=== PATIENT | male | born 1980 | race Caucasian/White ===

== ENCOUNTER 2024-10-16 09:01 | Inpatient (IN) | payer OTHER ==
[~2024-10-16] VITALS: Ht 175.3 cm; Wt 66.5 kg
[2024-10-16 10:01] LABS: BASOPHILS % (AUTO) 0.1 % (0.0-2.0); EOSINOPHILS % (AUTO) 0 % (1.0-6.0); HEMATOCRIT 37.5 % (41-53); HEMOGLOBIN 12.8 g/dL (13.5-17.5); LYMPHOCYTES # (AUTO) 0.9 K/uL (1.0-4.8); LYMPHOCYTES % (AUTO) 16.1 % (22.0-44.0); MEAN CORPUSCULAR HEMOGLOBIN 30.8 pg (26.0-34.0); MEAN CORPUSCULAR HGB CONC 34.1 G/dL (31.0-37.0); MEAN CORPUSCULAR VOLUME 91 fL (80-100); MONOCYTES # (AUTO) 0.3 K/uL (0.1-1.0); MONOCYTES % (AUTO) 5.6 % (2.0-9.0); NEUTROPHILS # (AUTO) 4.4 K/uL (1.8-7.7); NEUTROPHILS % (AUTO) 78.2 % (40.0-70.0); PLATELET COUNT (AUTO) 126 K/uL (150-450); RED BLOOD CELL COUNT(AUTO) 4.15 MIL/uL (4.50-5.90); RED CELL DISTRIBUTION WIDTH 13.1 % (11.5-14.5); WHITE BLOOD COUNT (AUTO) 5.7 K/uL (4.5-11.0)
[2024-10-16 10:04] LABS: ANION GAP 8 mmol/L (8-16); CALCIUM, TOTAL 8.9 mg/dL (8.8-10.5); CARBON DIOXIDE 29 mmol/L (22-29); CHLORIDE 101 mmol/L (98-107); CREATININE 0.84 mg/dL (0.60-1.30); GLOMERULAR FILTR. RATE CALC > 60 mL/min (>60); GLUCOSE,RANDOM 122 mg/dL (70-110); LIPASE 20 U/L (16-77); POTASSIUM 4.6 mmol/L (3.5-5.1); SODIUM SERUM 138 mmol/L (136-145); UREA NITROGEN, BLOOD 14 mg/dL (7-18)
[2024-10-16 10:10] LABS: ALBUMIN 3.7 g/dL (3.4-5.0); BILIRUBIN,DIRECT 0.1 mg/dL (0.00-0.20); BILIRUBIN,TOTAL 0.6 mg/dL (0.1-1.0); TOTAL PROTEIN, SERUM 7.4 g/dL (6.4-8.2)
[2024-10-16 10:13] LABS: ALCOHOL, BLOOD (SERUM) < 3 mg/dL (0-10)
[2024-10-16] MEDS: ACETAMINOPHEN 1000 MG/ISO-OSM 100 ML IV ONE (10:34)
[2024-10-16] MEDS: ONDANSETRON HCL 4 MG/2 ML VIAL IVP ONE (10:34)
[2024-10-16] MEDS: METOCLOPRAMIDE HCL 5 MG/ML 2 ML VIAL IVP ONE (12:15)
[2024-10-16] MEDS: PB/HYOSCY/ATR/SCOP/LIDO/MAALOX 55 ML BOTTLE PO ONE (12:15)
[2024-10-16 12:29] LABS: COVID AG,FIA SOURCE NASAL SWAB
[2024-10-16 12:35] LABS: APPEARANCE,URINE HAZY (CLEAR); BILIRUBIN,URINE NEGATIVE (NEGATIVE); COLOR,URINE YELLOW (YELLOW); GLUCOSE, URINE (UA) NEGATIVE (NEGATIVE); KETONES,URINE NEGATIVE (NEGATIVE); LEUKOCYTE ESTERASE ,URINE NEGATIVE (NEGATIVE); NITRATE,URINE NEGATIVE (NEGATIVE); OCCULT BLOOD,URINE NEGATIVE (NEGATIVE); PH,URINE 7.5 (5.0-8.0); PH,URINE DRUG SCREEN 7.5 (5.0-8.0); PROTEIN,URINE NEGATIVE (NEGATIVE); SPECIFIC GRAVITIY, URINE 1.022 (1.003-1.030); UROBILINOGEN,URINE <=1.0 mg/dL (<=1.0)
[2024-10-16 12:42] LABS: ALCOHOL, URINE DRUG SCREEN NEGATIVE (NEGATIVE); AMPHET/METH SCREEN,URINE NEGATIVE (NEGATIVE); BARBITURATE SCREEN, URINE NEGATIVE (NEGATIVE); BENZODIAZEPINES SCREEN,URINE NEGATIVE (NEGATIVE); CANNABINOID SCREEN,URINE NEGATIVE (NEGATIVE); COCAINE SCREEN,URINE NEGATIVE (NEGATIVE); METHADONE SCREEN, URINE NEGATIVE (NEGATIVE); OPIATE SCREEN,URINE NEGATIVE (NEGATIVE); PHENCYCLIDINE SCREEN,URINE NEGATIVE (NEGATIVE)
[2024-10-16 12:48] LABS: SARS-COV2 (COVID) ANTIGEN,FIA Negative (Negative)
[2024-10-16 12:49] LABS: INFLUENZA TYPE A NEGATIVE FOR TYPE A (NEGATIVE); INFLUENZA TYPE B NEGATIVE FOR TYPE B (NEGATIVE)
[2024-10-16] MEDS ORDERED: ZOLPIDEM TARTRATE 5 MG TABLET PO PRN (17:15)
[2024-10-16] MEDS ORDERED: HYDROCODONE/ACETAMINOPHEN 5-325 MG TABLET PO PRN (17:15)
[2024-10-16] MEDS ORDERED: ALBUTEROL SULFATE 2.5 MG/0.5 ML NEB SOLUTION NEB PRN (17:15)
[2024-10-16] MEDS ORDERED: IPRATROPIUM BROMIDE 0.5 MG/2.5 ML NEB SOLUTION NEB PRN (17:15)
[2024-10-16] MEDS ORDERED: LABETALOL HCL 5 MG/ML 20 ML VIAL IVP PRN (17:15)
[2024-10-16 17:16] VITALS: BP 144/85; PULSE 54; RESP 18; TEMP 99.5; O2SAT 100
[2024-10-16] MEDS ORDERED: SODIUM CHLORIDE 0.9% 100 ML ONE (17:27)
[2024-10-16] MEDS ORDERED: IOHEXOL 350 MG/ML 100 ML VIAL ONE (17:27)
[2024-10-16] MEDS: DEXTROSE 5%-0.45% SODIUM CHL 1,000 ML IV SCH (18:33)
[2024-10-16 18:40] VITALS: BP 112/64; PULSE 56
[2024-10-16] MEDS: MORPHINE SULFATE 2 MG/ML SYRINGE IVP PRN (18:44)
[2024-10-16 20:05] VITALS: BP 148/87; PULSE 56; RESP 18; TEMP 99; O2SAT 100
[2024-10-16] MEDS: ONDANSETRON HCL 4 MG/2 ML VIAL IVP PRN (20:18)
[2024-10-16] MEDS: DOCUSATE SODIUM 100 MG CAPSULE PO SCH (21:00)
[2024-10-16] MEDS: HEPARIN SODIUM,PORCINE 5,000 UNITS/ML VIAL SQ SCH (23:28)
[2024-10-16 23:38] VITALS: BP 136/82; PULSE 54; RESP 18; TEMP 99.3; O2SAT 100
[2024-10-17 04:41] VITALS: BP 149/86; PULSE 55; RESP 18; TEMP 98.6; O2SAT 97
[2024-10-17 08:00] VITALS: BP 146/87; PULSE 52; RESP 19; TEMP 98.6; O2SAT 99
[2024-10-17] MEDS: ACETAMINOPHEN 325 MG TABLET PO PRN (08:29)
[2024-10-17] MEDS: PANTOPRAZOLE SODIUM 40 MG/VIAL IVP SCH (08:29)
[2024-10-17] MEDS: MAGNESIUM HYDROXIDE SUSPENSION 30 ML UDCUP PO PRN (08:30)
[2024-10-17] MEDS: BISACODYL 10 MG RECTAL RECTAL SUPPOSITORY PR PRN (12:23)
[2024-10-17 13:28] VITALS: BP 146/82; PULSE 56; RESP 19; TEMP 98.6; O2SAT 99
[2024-10-17 19:52] VITALS: BP 141/86; PULSE 55; RESP 16; TEMP 98.1; O2SAT 98
[2024-10-18 02:30] VITALS: BP 132/79; PULSE 58; RESP 18; TEMP 98.2; O2SAT 99
[2024-10-18 08:15] VITALS: BP 137/85; PULSE 52; RESP 18; TEMP 99.1; O2SAT 99
[2024-10-18 19:32] VITALS: BP 139/85; PULSE 58; RESP 18; TEMP 99; O2SAT 99
[2024-10-19 03:50] VITALS: BP 141/85; PULSE 60; RESP 18; TEMP 98.1; O2SAT 99
[2024-10-19 07:40] VITALS: BP 134/76; PULSE 54; RESP 18; TEMP 98.4; O2SAT 100
[2024-10-19] MEDS ORDERED: SODIUM CHLORIDE 0.9% 1,000 ML ONE (13:20)
[2024-10-19] MEDS ORDERED: FentaNYL CITRATE PF 100 MCG/2 ML VIAL ONE (13:27)
[2024-10-19] MEDS ORDERED: MIDAZOLAM HCL 5 MG/ML VIAL ONE (13:27)
[2024-10-19] MEDS: SODIUM CHLORIDE 0.9% 1,000 ML IV ONE (14:08)
[2024-10-19 17:05] VITALS: BP 144/86; PULSE 61; RESP 18; TEMP 98.8; O2SAT 100
[2024-10-19 20:20] VITALS: BP 145/78; PULSE 86; RESP 18; TEMP 99; O2SAT 98
[2024-10-20 05:22] VITALS: BP 136/79; PULSE 63; RESP 18; TEMP 98.2; O2SAT 99
[2024-10-20 08:06] VITALS: BP 136/84; PULSE 62; RESP 18; TEMP 98.2; O2SAT 99
[2024-10-20 11:42] VITALS: BP 132/74; PULSE 68; RESP 16; TEMP 98; O2SAT 98
[2024-10-20] MEDS: BISACODYL 10 MG RECTAL RECTAL SUPPOSITORY PR ONE (14:00)
[2024-10-20] MEDS ORDERED: PANT-31 PO (14:00)
[2024-10-20 16:48] VITALS: BP 130/81; PULSE 64; RESP 17; TEMP 98.1; O2SAT 98
[2024-10-20 19:38] VITALS: BP 131/98; PULSE 74; RESP 18; TEMP 98.8; O2SAT 96
== END 2024-10-20 20:30 | DRG 384 ==
LOC: EMS 09:07 → EDH 15:25 → 6N 17:05
PROVIDERS: ADMIT Hospitalist; ATTEND Hospitalist
PROC: 0DB78ZX Excision of Stomach, Pylorus, Via Natural or Artificial Opening Endoscopic, Diagnostic (ICD-10-PCS; principal; 2024-10-19 14:35)
DX: K25.9 Gastric ulcer, unspecified as acute or chronic, without hemorrhage or perforation (principal); K31.89 Other diseases of stomach and duodenum; K29.70 Gastritis, unspecified, without bleeding; K57.30 Diverticulosis of large intestine without perforation or abscess without bleeding; R11.2 Nausea with vomiting, unspecified; Z20.822 Contact with and (suspected) exposure to COVID-19; I10 Essential (primary) hypertension; Z79.899 Other long term (current) drug therapy; K59.00 Constipation, unspecified; D41.4 Neoplasm of uncertain behavior of bladder; K44.9 Diaphragmatic hernia without obstruction or gangrene
CPT/HCPCS: 74177; 76700; 80048; 80076; 80307; 81003; 83690; 85025; 87804; 93005; 99285; G0480; J0131; J1644; J2250; J2270; J2405; J2470; J2765; J3010; J7030; J7050